=== PATIENT | male | born 1985 | race Caucasian/White ===

== ENCOUNTER → 2017-06-26 | Outpatient (CLI) | payer OTHER | END | disposition home or self-care (01) | LOC: CFH 15:41 | PROVIDERS: ATTEND Emergency Medicine | DX: I86.1 Scrotal varices (principal) | CPT/HCPCS: 76870 ==

== ENCOUNTER 2019-11-03 17:28 | Emergency (ER) | payer OTHER ==
[~2019-11-03] VITALS: Ht 177.8 cm; Wt 70.8 kg
--- NOTE | 2019-11-03 17:54 | NUR ---
ERP AT NOW.
[2019-11-03] MEDS ORDERED: SODIUM CHLORIDE 0.9% 1,000 ML IV ONE (17:57)
[2019-11-03] MEDS ORDERED: SODIUM CHLORIDE FLUSH 10ML SYR IVF ONE (18:00)
[2019-11-03] MEDS ORDERED: MAALOX/HYOSCYAMINE/LIDOCAINE 45 ML BTL PO ONE (18:00)
[2019-11-03] MEDS ORDERED: SODIUM CHLORIDE 0.9% 1,000ML IVBOLUS ONE (18:00)
[2019-11-03] MEDS ORDERED: ONDANSETRON 2MG/ML, 2ML IVPush ONE (18:00)
[2019-11-03] MEDS ORDERED: MORPHINE SULFATE 4 MG/ML, 1ML IVPush PRN (18:00)
[2019-11-03] MEDS ORDERED: ONDANSETRON 2MG/ML, 2ML ONE (18:22)
[2019-11-03] MEDS ORDERED: MAALOX/HYOSCYAMINE/LIDOCAINE 45 ML BTL ONE (18:22)
[2019-11-03] MEDS ORDERED: MORPHINE SULFATE 4 MG/ML, 1ML ONE (18:22)
[2019-11-03 18:25] LABS: BASOPHILS # (AUTO) 0.02 x10^3/uL (0-0.1); BASOPHILS % (AUTO) 0 % (0-1); EOSINOPHILS % (AUTO) 0 % (1-7); LYMPHOCYTES # (AUTO) 0.39 x10^3/uL (1-3.4); LYMPHOCYTES % (AUTO) 3 % (22-44); MD NO; MEAN CORPUSCULAR HEMOGLOBIN 32.1 pg (27.5-34.5); MEAN CORPUSCULAR HGB CONC 33.4 g/dL (33.2-36.2); MEAN CORPUSCULAR VOLUME 96.1 fL (81-97); MEAN PLATELET VOLUME 9.4 fL (7.4-10.4); MONOCYTES # (AUTO) 0.71 x10^3/uL (0.2-0.8); MONOCYTES % (AUTO) 6 % (2-9); NEUTROPHILS # (AUTO) 10.34 x10^3/uL (1.8-6.8); NEUTROPHILS % (AUTO) 90 % (42-75); PLATELET COUNT 300 x10^3/uL (130-400); RED BLOOD COUNT 4.18 x10^6/uL (4.38-5.82); RED CELL DISTRIBUTION WIDTH 12.5 % (9.4-14.8)
--- NOTE | 2019-11-03 18:25 | NUR ---
PT MEDICATED PER ORDERS. DECLINED MORPHINE AT THIS TIME. UNDERSTANDS POC.
[2019-11-03 18:29] LABS: ANION GAP 11 mmol/L (5-15); CALCIUM 9.4 mg/dL (8.5-10.1); CHLORIDE 104 mmol/L (98-107)
[2019-11-03 18:35] LABS: ALANINE AMINOTRANSFERASE 30 U/L (12-78); ALKALINE PHOSPHATASE 89 U/L (45-117); BILIRUBIN,TOTAL 1.3 mg/dL (0.2-1.0); CREATININE 1.15 mg/dL (0.7-1.3); TOTAL PROTEIN 6.5 g/dL (6.4-8.2)
--- NOTE | 2019-11-03 19:00 | NUR ---
PT STATES HE FEELS A LITTLE BETTER AFTER IVF AND MEDS. STILL C/O NECK PAIN, THINKS IT'S RELATED TO HIS ABD PAIN. PT AMBULATED TO WITHOUT DIFFICULTY, INSTRUCTED ON CLEAN CATCH URINE SAMPLE.
[2019-11-03 19:23] LABS: MICROSCOPIC NOT IND
[2019-11-03 19:52] VITALS: BP 98/43
--- NOTE | 2019-11-03 19:52 | NUR ---
PT LYING IN GURNEY WATCHING TV. STILL C/O DISCOMFORT TO NECK & SHOULDERS & ABD. MEDICATED WITH MORPHINE PER ORDERS. IVF INFUSING. CHART UP FOR RECHECK.
--- NOTE | 2019-11-03 20:45 | NUR ---
PT REPORTS IMPROVEMENT TO NECK & SHOULDER PAIN AFTER MORPHINE. ERP WAS IN FOR RECHECK.
--- NOTE | 2019-11-03 20:50 | NUR ---
D/C INSTRUCTIONS, MEDS & F/U APPT RV'WD WITH PT, HE VERBALIZES UNDERSTANDING. RX GIVEN X1. PT AMBULATED OUT OF ED WITHOUT DIFFICULTY, STATES HIS FRIEND WILL PICK HIM UP.
== END 2019-11-03 20:57 | disposition home or self-care (01) ==
LOC: ED 18:45
DX: K29.00 Acute gastritis without bleeding (principal); E11.65 Type 2 diabetes mellitus with hyperglycemia; R10.13 Epigastric pain; R11.2 Nausea with vomiting, unspecified; I51.7 Cardiomegaly; E05.90 Thyrotoxicosis, unspecified without thyrotoxic crisis or storm; F17.210 Nicotine dependence, cigarettes, uncomplicated
CPT/HCPCS: 36415; 80053; 81003; 85025; 93005; 96361; 96374; 96375; 99284; 99406; J2270; J2405; J7030